=== PATIENT | male | born 1955 | race Caucasian/White ===

== ENCOUNTER 2016-12-17 20:37 | Emergency (ER) | payer BC ==
[2016-12-17 21:20] VITALS: BP 139/81; PULSE 71; TEMP 97.4; BMI 24.4
[2016-12-17] MEDS ORDERED: FLUORESCEIN NA 1 EA STRIP ONE (21:40)
[2016-12-17] MEDS ORDERED: TETRACAINE 0.5% OPHTH SOLN 2 ML BOTTLE ONE (21:41)
--- NOTE | 2016-12-17 21:49 | PDOC ---
History of Present Illness - General History Source: Patient Exam Limitations: No Limitations - History of Present Illness Initial Comments: 12/17/16 21:49 The patient is a 61 year old male with no pertinent history who arrives to the ED s/p left eye injury about 4 hours ago. The patient states he was walking in the basement, which has low ceilings, and hit the left side of his forehead on a door frame. Although asymptomatic at the time of injury the patient began to notice flashes of yellow light in his lateral left eye. He states the flashes only occurred very intermittently when he looked to his left. Upon evaluation, the patient noticed his vision is worse in his left eye compared to his right. The patient denies any other head trauma, blurred vision, LOC, or focal deficits. He denies recent fevers, nausea, vomiting, diarrhea, or urinary complaints. The patient adds that he is from [place] and is visiting his brother. He denies any history of ophthalmologic disease. <Anahi Odom - Last Filed: 12/17/16 21:53> <Gale Wesley - Last Filed: 12/18/16 04:38> - General Chief Complaint: Injury Stated Complaint: LEFT SIDE OF FACE AND EYE TENDERNESS BANGED ON DOO Time Seen by Provider: 12/17/16 20:47 Past History <Anahi Odom - Last Filed: 12/17/16 21:53> - Past Medical History HTN: Yes Hypercholesterolemia: Yes - Psycho/Social/Smoking Cessation Hx Anxiety: No Suicidal Ideation: No Smoking History: Never smoked Information on smoking cessation initiated: No Hx Alcohol Use: Yes (social) Substance Use Type: Alcohol <Gale Wesley - Last Filed: 12/18/16 04:38> - Past Medical History Allergies/Adverse Reactions: Allergies Allergy/AdvReac Type Severity Reaction Status Date / Time No Known Allergies Allergy Unverified 12/18/16 01:36 Review of Systems - Review of Systems Able to Perform ROS?: Yes Comments:: 12/17/16 21:49 CONSTITUTIONAL: Absent: fever, chills, diaphoresis, generalized weakness, malaise, loss of appetite HEENT: Present: left eye pain and flashes in left eye periphery Absent: rhinorrhea, nasal congestion, throat pain, throat swelling, difficulty swallowing, mouth swelling, ear pain CARDIOVASCULAR: Absent: chest pain, syncope, palpitations, irregular heart rate, lightheadedness , peripheral edema RESPIRATORY: Absent: cough, shortness of breath, dyspnea with exertion, orthopnea, wheezing, stridor, hemoptysis GASTROINTESTINAL: Absent: abdominal pain, abdominal distension, nausea, vomiting, diarrhea, constipation, melena, hematochezia GENITOURINARY: Absent: dysuria, frequency, urgency, hesitancy, hematuria, flank pain, genital pain MUSCULOSKELETAL: Absent: myalgia, arthralgia, joint swelling SKIN: Absent: rash, itching, pallor HEMATOLOGIC/IMMUNOLOGIC: Absent: easy bleeding, easy bruising, lymphadenopathy, frequent infections ENDOCRINE: Absent: unexplained weight gain, unexplained weight loss, heat intolerance, cold intolerance NEUROLOGIC: Absent: headache, focal weakness or paresthesias, dizziness, unsteady gait, seizure, mental status changes, bladder or bowel incontinence PSYCHIATRIC: Absent: anxiety, depression, suicidal or homicidal ideation, hallucinations. All Other Systems: Reviewed and Negative <Anahi Odom - Last Filed: 12/17/16 21:53> *Physical Exam - Vital Signs Last Vital Signs Temp Pulse Resp BP Pulse Ox 97.4 F L 71 18 139/81 100 12/17/16 20:46 12/17/16 20:46 12/17/16 20:46 12/17/16 20:46 12/17/16 20:46 - Physical Exam Comments: 12/17/16 21:51 GENERAL: Well developed, well nourished. Awake and alert. No acute distress. HEENT: Normocephalic, atraumatic. Mild tenderness and minimal edema and erythema of supra orbital of left eye PERRLA, EOMI. No conjunctival pallor. Sclera are non- icteric. Moist mucous membranes. Oropharynx is clear. NECK: Supple. Full ROM. No JVD. Carotid pulses 2+ and symmetric, without bruits. No thyromegaly. No lymphadenopathy. CARDIOVASCULAR: Regular rate and rhythm. No murmurs, rubs, or gallops. Distal pulses are 2+ and symmetric. PULMONARY: No evidence of respiratory distress. Lungs clear to auscultation bilaterally. No wheezing, rales or rhonchi. ABDOMINAL: Soft. Non-tender. Non-distended. No rebound or guarding. No organomegaly. Normoactive bowel sounds. MUSCULOSKELETAL Normal range of motion at all joints. No bony deformities or tenderness. No CVA tenderness. EXTREMITIES: No cyanosis. No clubbing. No edema. No calf tenderness. SKIN: Warm and dry. Normal capillary refill. No rashes. No jaundice. NEUROLOGICAL: Alert, awake, appropriate. Cranial nerves 2-12 intact. No deficits to light touch and temperature in face, upper extremities and lower extremities. No motor deficits in the in face, upper extremities and lower extremities. Normoreflexic in the upper and lower extremities. Normal speech. Toes are down-going bilaterally. Gait is normal without ataxia. PSYCHIATRIC: Cooperative. Good eye contact. Appropriate mood and affect. <Anahi Odom - Last Filed: 12/17/16 21:53> - Vital Signs Last Vital Signs Temp Pulse Resp BP Pulse Ox 97.4 F L 71 18 139/81 100 12/17/16 20:46 12/17/16 20:46 12/17/16 20:46 12/17/16 20:46 12/17/16 20:46 <Gale Wesley - Last Filed: 12/18/16 04:38> Progress Note - Progress Note Progress Note: Documentation has been prepared under my direction and personally reviewed by me in its entirety. I attest that this documented accurately reflects all work, treatment, procedures and medical decision making performed by me. <Gale Wesley - Last Filed: 12/18/16 04:38> Medical Decision Making - Medical Decision Making As noted above, this 61-year-old man presents with history of hitting the left side of his forehead against low ceiling in his brother's basement (patient is visiting from [place]) earlier in the evening. There was no loss of consciousness the patient denies headache/lightheadedness/balance problems/ speech difficulties. He has however noted intermittent visual changes: In the periphery of his vision on the left side, he notes a "yellow streak" on lateral gaze. This is not present on neutral forward gaze or medial gaze of the left eye. He denies floaters or other visual changes except for very mild blurring in the left eye as compared to the right. No previous history ophthalmologic issues. Exam as noted Also, to rule out corneal injury: 1 drop of 0.5% tetracaine solution placed in the left eye and fluorescein staining performed: No evidence of corneal injury present. Orbital CT performed to evaluate for acute bony pathology or other occult soft tissue injury. Other than chronic sinus inflammation, no findings present, with fracture/air-fluid levels/evidence of orbital perforation not present. Case discussed with Dr. Anton of the ophthalmology staff. Although likely that the visual change in the left eye is temporary, or Dr. Holt would be happy to follow-up with the patient tomorrow. He can be seen either in the a.m. or p.m. office hours. Results and consultation with Dr. stearns discussed with the patient. Patient will follow-up with the ophthalmology office in the morning. Meanwhile , if he has any worsening of his symptoms, he should return to the emergency room <Gale Wesley - Last Filed: 12/18/16 04:38> *DC/Admit/Observation/Transfer - Attestations Scribe Attestion: 12/17/16 21:52 Documentation prepared by Anahi Odom, acting as biomedical manager for Gale Wesley MD. <Anahi Odom - Last Filed: 12/17/16 21:53> <Gale Wesley - Last Filed: 12/18/16 04:38> Diagnosis at time of Disposition: Contusion of periorbital region, left Qualifiers: Encounter type: initial encounter Qualified Code(s): S05.12XA - Contusion of eyeball and orbital tissues, left eye, initial encounter - Discharge Dispostion Disposition: HOME Condition at time of disposition: Stable - Referrals Referrals: Rupert Anton MD [Staff Physician] - 24 hours - Patient Instructions Printed Discharge Instructions: DI for Eye Contusion Additional Instructions: keep head elevated tonight acetaminophen as needed for pain followup tomorrow with neurology technologist(Kelton Holt/[place]) as discussed return to ER if symptoms worsen
== END 2016-12-17 23:35 | disposition home or self-care (01) ==
LOC: FER 20:37
DX: S05.12XA Contusion of eyeball and orbital tissues, left eye, initial encounter (principal); W22.09XA Striking against other stationary object, initial encounter; Y93.89 Activity, other specified; Y92.008 Other place in unspecified non-institutional (private) residence as the place of occurrence of the external cause
CPT/HCPCS: 70480-TC; 99282-25